=== PATIENT | female | born 1955 | race Two or more races ===

== ENCOUNTER 2016-10-21 08:12 | Day surgery (SDC) | payer OTHER ==
[~2016-10-21] VITALS: Ht 162.6 cm; Wt 76.1 kg
[2016-10-21 09:04] VITALS: Ht 162.6 cm; Wt 76.1 kg
[2016-10-21] MEDS ORDERED: ASPI-664 PO (09:15)
[2016-10-21] MEDS ORDERED: LANT3I SC (09:15)
[2016-10-21] MEDS ORDERED: LOVA10TA63 PO (09:15)
[2016-10-21] MEDS ORDERED: BENA20TA48 PO (09:15)
[2016-10-21] MEDS ORDERED: METF500T4 PO (09:15)
[2016-10-21 09:37] VITALS: BP 140/66; PULSE 85; RESP 9
[2016-10-21] MEDS ORDERED: MIDAZOLAM 1 MG/ML 2 ML INJ ONE ×2 (10:48)
[2016-10-21] MEDS ORDERED: FENTAnyl 50 MCG/ML VIAL ONE (10:49)
[2016-10-21 11:02] VITALS: BP 125/52; PULSE 64; RESP 20
--- NOTE | 2016-10-21 13:51 | GILP ---
DATE OF PROCEDURE: NAME OF PROCEDURE: Colonoscopy. SURGEON: Mercedes Jiang MD PREOPERATIVE DIAGNOSIS: Screening colonoscopy. POSTOPERATIVE DIAGNOSES: 1. Colonoscopy all the way to the cecum. 2. Poor prep making the exam suboptimal. 3. Internal hemorrhoids. INDICATION FOR THE PROCEDURE: Ms. Mulu Mariscal is a 60-year-old female patient who was scheduled for screening colonoscopy. The procedure and possible complications are well explained to the patient, she understood and conse nted to the procedure. DESCRIPTION OF PROCEDURE: Under the influence of fentanyl and Versed, the colonoscope was carefully introduced in the rectum and under direct vision, it was advanced all the way to the cecum. FINDINGS: The patient had poor prep making the exam suboptimal. The patient was noted to have inte rnal hemorrhoids. She tolerated the procedure very well and there was no complication from the procedure. At the end of the procedures, she was awake with stable vital signs and she was discharged home to the care of her family. IMPRESSION: 1. Colonoscopy all the way to the cecum. 2. Poor prep making the exam suboptimal. 3. Internal hemorrhoids. PLAN: Because of the poor prep and suboptimal nature of the examination, the patient will need repe at colonoscopy with better preparation in 1 to 2 years. Dictated By: MERCEDES PINA/ANNA Conf#: [id number] DID#: [id number]
== END 2016-10-21 11:00 | disposition home or self-care (01) ==
LOC: GIL 08:12
PROVIDERS: ATTEND Internal Medicine Gastroenterology
DX: Z12.11 Encounter for screening for malignant neoplasm of colon (principal); K64.8 Other hemorrhoids; I10 Essential (primary) hypertension; E11.9 Type 2 diabetes mellitus without complications
CPT/HCPCS: 43239; 82962; J2250; J3010; Z7610

== ENCOUNTER 2016-12-31 10:26 | Inpatient (IN) | payer OTHER ==
[~2016-12-31] VITALS: Ht 157.5 cm; Wt 77.0 kg
[~2016-12-31 10:26] MED LIST: ASPI-664 PO; BENA20TA48 PO; LANT3I SC; LOVA10TA63 PO; METF500T4 PO
[2016-12-31] MEDS ORDERED: SOD CHLORIDE 0.9% 1,000 ML IV STA (11:25)
[2016-12-31 12:32] LABS: ADD SCAN DIFF NO
[2016-12-31 12:36] LABS: ADD UMIC YES; URINE BILIRUBIN (Dip) NEGATIVE (NEGATIVE); URINE BLOOD (Dip) NEGATIVE (NEGATIVE); URINE COLOR LT. YELLOW (YELLOW); URINE GLUCOSE (Dip) NEGATIVE (NEGATIVE); URINE KETONES (Dip) NEGATIVE (NEGATIVE); URINE LEUKOCYTE ESTERASE (Dip) 1+ (NEGATIVE); URINE NITRITE (Dip) NEGATIVE (NEGATIVE); URINE TOTAL PROTEIN (Dip) NEGATIVE (NEGATIVE); URINE UROBILINOGEN (Dip) 0.2 E.U./dL (0.1-1.0)
[2016-12-31 12:39] LABS: BASOPHILS % 0.3 % (0.0-2.0); EOSINOPHILS # 0.1 10^3/ul (0.0-0.5); HEMATOCRIT 34.3 % (37.0-47.0); HEMOGLOBIN 11.4 g/dl (12.0-16.0); LYMPHOCYTES % 17.5 % (15.0-51.0); MEAN CORPUSCULAR HEMOGLOBIN 29.6 pg (29.0-33.0); MEAN CORPUSCULAR HGB CONC 33.2 g/dl (32.0-37.0); MEAN CORPUSCULAR VOLUME 89.1 fl (82.0-101.0); MEAN PLATELET VOLUME 9.9 fl (7.4-10.4); MONOCYTE # 0.4 10^3/ul (0.3-0.9); MONOCYTES % 3.7 % (0.0-11.0); NEUTROPHIL # 8.8 10^3/ul (1.6-7.5); NEUTROPHILS % 76.8 % (39.0-77.0); PLATELET COUNT 330 10^3/UL (140-415); RED BLOOD COUNT 3.85 10^6/ul (4.20-5.40); RED CELL DISTRIBUTION WIDTH 12.5 % (11.5-14.5); WHITE BLOOD COUNT 11.5 10^3/ul (4.8-10.8)
[2016-12-31 12:44] LABS: URINE RBCS 0-2 /HPF (0)
[2016-12-31 12:58] LABS: ALBUMIN 4.3 g/dl (3.3-4.9)
[2016-12-31 12:59] LABS: POTASSIUM 4.2 mmol/L (3.5-5.1)
--- NOTE | 2016-12-31 12:59 | RADRPT ---
PROCEDURE: XR Foot. CLINICAL INDICATION: Pain. Evaluate for osteomyelitis. TECHNIQUE: Right foot x-rays, three views. COMPARISON: None. FINDINGS: Bone density appears normal to slightly decreased. Bony cortices are intact. There is no evidence of osseous erosion. Degenerative changes of the first metatarsophalangeal joint are present. Mild bunion deformity is observed. A plantar calcaneal spur is present. A defect of the superficial sub cutaneous soft tissues medial to the proximal phalanx of the great toe is present. There is no evid ence of soft tissue air. There is no underlying bony abnormality. IMPRESSION: Presumed soft tissue ulceration of the medial aspect of the great toe. There is no underlying osseo us abnormality or soft tissue air. Mild degenerative changes of the first metatarsophalangeal joint with mild bunion deformity. RPTAT: [facility] .Hiwot Schwarz MD, Date Time Electronically viewed and signed by .Hiwot Schwarz MD, on 12/31/2016 12:59 .T/
[2016-12-31 13:01] LABS: ALBUMIN/GLOBULIN RATIO 1.07; BILIRUBIN,INDIRECT 0.1 mg/dl (0-1.1); BILIRUBIN,TOTAL 0.1 mg/dl (0.2-1.3); CREATININE 0.76 mg/dl (0.44-1.00); TOTAL PROTEIN 8.3 g/dl (6.1-8.1)
[2016-12-31 13:02] LABS: CALCIUM 9.6 mg/dl (8.4-10.2)
[2016-12-31] MEDS ORDERED: CEFTRIAXONE 1 GM/50 ML (PMX) 50 ML IVPB STA (13:02)
[2016-12-31] MEDS ORDERED: SOD CHLORIDE 0.9% 1,000 ML IV SCH (13:26)
[2016-12-31] MEDS ORDERED: ACETAMINOPHEN 325 MG TAB PO PRN ×2 (13:30→17:00)
[2016-12-31] MEDS ORDERED: VANCOMYCIN 1 GM (PMX) 250 ML IVPB ONE (13:30)
[2016-12-31] MEDS ORDERED: ONDANSETRON 4 MG INJ IV PRN ×2 (13:30→17:00)
--- NOTE | 2016-12-31 13:30 | ERA ---
ER Documentation Chief Complaint Date/Time DATE: 12/31/16 TIME: 13:29 Chief Complaint r foot r/o osteo sent by health information coder HPI This is a 61-year-old female with a history of diabetes and hypertension who presents to the emergency room after being sent in by her health information coder, Dr. Cunningham for evaluation of a right big toe ulcer. This patient states that she has had it for approximately 2 weeks and has been on antibiotics with no resolution. The patient denies any fevers, and I spoke to her health information coder who states that she went to the health information coder office and was sent to the emergency room for MRI, admission and to rule out osteomyelitis. ROS All systems reviewed and are negative except as per history of present illness. Medications Home Meds Reported Medications Lovastatin* (Lovastatin*) 10 Mg Tablet, 10 MG PO HS, TAB 10/21/16 Benazepril Hcl* (Benazepril Hcl*) 20 Mg Tablet, 20 MG PO DAILY, #30 TAB 10/21/16 Metformin* (Glucophage*) 500 Mg Tab, 500 MG PO WITH BREAKFAST, #30 TAB 10/21/16 Insulin Glargine* (Lantus*) 100 Unit/Ml Soln, 1 UNIT SC QHS, #1 VIAL 10/21/16 Aspirin* (Aspirin* EC) 81 Mg Tablet.dr, 81 MG PO DAILY, TAB 10/21/16 Allergies Allergies: Coded Allergies: No Known Drug Allergies (Verified Allergy, Unknown, 10/21/16) PMhx/Soc History of Surgery: Yes (L ARM FX REPAIRED WITH METAL PLATE) Anesthesia Reaction: Yes (NAUSEA) Hx Neurological Disorder: No Hx Respiratory Disorders: No Hx Cardiac Disorders: Yes (HTN, HIGH CHOL) Hx Psychiatric Problems: No Hx Miscellaneous Medical Probl: No Hx Alcohol Use: No Hx Substance Use: No Hx Tobacco Use: No Physical Exam Vitals Vital Signs Date Time Temp Pulse Resp B/P Pulse Ox O2 Delivery O2 Flow Rate FiO2 12/31/16 10:53 98.0 100 18 146/75 100 Physical Exam INITIAL VITAL SIGNS: Reviewed by me GENERAL: The patient is well developed and appropriate for usual state of health in no apparent distress HEENT: Pupils equal, round, and reactive to light. EOMI. There is no scleral icterus. NECK: C-spine is soft and supple, there is no meningismus. There is no cervical lymphadenopathy. LUNGS: Clear to auscultation bilaterally. There are no rales, wheezes or rhonchi. HEART: Regular rate and rhythm, no murmurs, clicks, rubs or gallops. ABDOMEN: Soft, non-tender, non-distended. There are bowel sounds in all four quadrants. No rebound or guarding. EXTREMITIES: 2 cm x 1 cm ulcer on the lateral aspect of the right first toe, surrounding area of cellulitis, mild necrosis of the skin, and no purulent discharge there is no peripheral cyanosis or edema. No focal swelling or erythema. NEUROLOGICAL: The patient moves all four extremities with 5/5 strength. Cranial nerves II - XII are intact. Normal gait. Alert and oriented SKIN: There is no apparent rash or petechiae. HEME/LYMPHATIC: There is no evidence of excessive bruising or lymphedema. PSYCHIATRIC: The patient does not appear anxious or depressed. Result Diagram: 12/31/16 1220 12/31/16 1220 Results 24 hrs Laboratory Tests Test 12/31/16 12:20 White Blood Count 11.510^3/ul Red Blood Count 3.8510^6/ul Hemoglobin 11.4g/dl Hematocrit 34.3% Mean Corpuscular Volume 89.1fl Mean Corpuscular Hemoglobin 29.6pg Mean Corpuscular Hemoglobin Concent 33.2g/dl Red Cell Distribution Width 12.5% Platelet Count 93127^3/UL Mean Platelet Volume 9.9fl Neutrophils % 76.8% Lymphocytes % 17.5% Monocytes % 3.7% Eosinophils % 1.0% Basophils % 0.3% Nucleated Red Blood Cells % 0.0/100WBC Neutrophils # 8.810^3/ul Lymphocytes # 2.010^3/ul Monocytes # 0.410^3/ul Eosinophils # 0.110^3/ul Basophils # 0.010^3/ul Nucleated Red Blood Cells # 0.010^3/ul Urine Color LT. YELLOW Urine Clarity CLEAR Urine pH 6.0 Urine Specific [place] <=1.005 Urine Ketones NEGATIVE Urine Nitrite NEGATIVE Urine Bilirubin NEGATIVE Urine Urobilinogen 0.2 E.U./dL Urine Leukocyte Esterase 1+ Urine Microscopic RBC 0-2/HPF Urine Microscopic WBC 2-5/HPF Urine Epithelial Cells FEW Urine Hemoglobin NEGATIVE Urine Glucose NEGATIVE% Urine Total Protein NEGATIVE Sodium Level 140mmol/L Potassium Level Pending Chloride Level 103mmol/L Carbon Dioxide Level Pending Anion Gap Pending Blood Urea Nitrogen Pending Creatinine Pending Glucose Level Pending Calcium Level Pending Total Bilirubin Pending Direct Bilirubin Pending Indirect Bilirubin Pending Aspartate Amino Transf (AST/SGOT) Pending Alanine Aminotransferase (ALT/SGPT) Pending Alkaline Phosphatase Pending Total Protein Pending Albumin 4.3g/dl Globulin Pending Albumin/Globulin Ratio Pending Current Medications Medications (Trade) Dose Ordered Sig/Snehal Route PRN Reason Start Time Stop Time Status Last Admin Dose Admin Sodium Chloride 1,000 ml @ 1,000 mls/hr Q1H STAT IV 12/31/16 11:25 12/31/16 12:24 DC Vancomycin HCl 250 ml @ 125 mls/hr ONCE ONCE IVPB 12/31/16 13:30 12/31/16 15:29 Ceftriaxone Sodium 50 ml @ 100 mls/hr ONCE STAT IVPB 12/31/16 13:02 12/31/16 13:31 12/31/16 13:16 Sodium Chloride (NS) 1,000 ml @ 80 mls/hr [id number] IV 12/31/16 13:26 01/01/17 01:55 Ondansetron HCl (Zofran Inj) 4 mg BRIDGE ORDER PRN IV NAUSEA AND/OR VOMITING 12/31/16 13:30 01/01/17 13:29 Acetaminophen (Tylenol Tab) 650 mg ER BRIDGE PRN PO MILD PAIN/FEVER 12/31/16 13:30 01/01/17 13:29 Procedures/MDM X-ray Foot 3V Interpreted by me: Bones: [No fracture] Joints: [No dislocation] Foreign body: [None] This 61-year-old female presents to the emergency room for evaluation of a foot ulcer. When I evaluated her she did have a 2 cm ulcer on the right greater toe. There was a surrounding area of cellulitis. This patient was afebrile. I did obtain lab work which does not show leukocytosis. X-ray does not show osteomyelitis at this time. The patient was started on vancomycin and Rocephin. I did speak with her health information coder, Dr. Cunningham who states he would like the patient admitted and he will consult on the floor. The patient will be admitted to the MedSurg floor under the care of her panel physician Dr. Barker at this time Departure Diagnosis: Primary Impression: Toe ulcer, right Additional Impressions: Foot pain Normocytic anemia Condition: Stable FELICITAS STANLEY DO December 31, 2016 13:29
[2016-12-31] MEDS ORDERED: VANCOMYCIN IV PER PHARMACY XX SCH (17:00)
[2016-12-31] MEDS ORDERED: NA PHOSPHATE/BIPHOS 133 ML ENEMA PR PRN (17:00)
[2016-12-31] MEDS ORDERED: MAGNESIUM HYDROXIDE 30ML CUP PO PRN (17:00)
[2016-12-31] MEDS ORDERED: morphine 2 MG INJ IV PRN (17:00)
[2016-12-31] MEDS ORDERED: DOCUSATE SODIUM 100 MG CAP PO PRN (17:00)
[2016-12-31] MEDS ORDERED: NITROGLYCERIN (SL) 0.4 MG TAB SL PRN (17:00)
[2016-12-31] MEDS ORDERED: NACL 0.9% 3 ML SYG IV SCH (17:00)
[2016-12-31] MEDS: INSULIN ASPART [NOVOLOG] 3 ML PEN SC SCH ×2 (17:00→21:00)
[2016-12-31] MEDS ORDERED: ALBUTEROL/IPRATROPIUM (NEB) 3 ML AMP HHN PRN (17:00)
[2016-12-31] MEDS ORDERED: hydrALAzine 20 MG INJ IV PRN (17:00)
[2016-12-31] MEDS ORDERED: LORAZEPAM 2 MG INJ IV PRN (17:00)
--- NOTE | 2016-12-31 17:17 | RADRPT ---
PROCEDURE: MRI OF THE RIGHT FOOT CLINICAL INDICATION: Right foot pain and swelling, concern for osteomyelitis TECHNIQUE: Multiple MRI images were obtained utilizing multiple sequences in multiple planes. Image s were interpreted on a high-resolution PACS system. COMPARISON: Radiographs of the right foot dated December 31, 2016 FINDINGS: There is a large medial skin ulceration centered at the first proximal phalanx (axial 18 and coronal 24) with adjacent soft tissue swelling. There is no drainable fluid collection or evidence of oste omyelitis at this time. There are mild background degenerative changes at the first metatarsophalan geal joint. There is degenerative partial thickness tearing of the second plantar plate (sagittal 14) with adjac ent soft tissue swelling/capsulitis. There is 4 mm of soft tissue fullness between the second and th ird metatarsal heads is noted which may reflect some fibrosis versus an interdigital neuroma. There is no dorsal subluxation of the second proximal phalanx. There is no stress or traumatic fracture. There is no tendon tear or tenosynovitis. There is no mus cristina atrophy or edema. IMPRESSION: 1. Medial skin ulceration near the first proximal phalanx with adjacent soft tissue swelling but no evidence of underlying osteomyelitis. 2. Degenerative tearing of the second plantar plate with adjacent soft tissue swelling/capsulitis. Cannot exclude a small interdigital neuroma between the second and third metatarsal heads. 3. No drainable fluid collection. 4. No evidence of acute fracture. 5. No evidence of tendon tear. RPTAT: [facility] .Torito Blount MD, Date Time Electronically viewed and signed by .Torito Blount MD, on 12/31/2016 17:17 .K/
[2016-12-31 17:45] VITALS: BP 135/61; PULSE 85; RESP 16; Ht 157.5 cm; Wt 77.0 kg
[2016-12-31] MEDS: PIPER-TAZO 3.375 GM IV (PMX) 100 ML IVPB SCH (18:11)
[2016-12-31] MEDS: SOD CHLORIDE 0.9% 1,000 ML IV SCH (18:11)
[2016-12-31 19:35] VITALS: BP 141/61; RESP 18
[2016-12-31] MEDS: ATORVASTATIN 10 MG TAB PO SCH (21:21)
[2016-12-31] MEDS: HYDROCODONE/APAP (5/325) TAB PO PRN (21:21)
[2016-12-31] MEDS: INSULIN GLARGINE [LANtus] 3 ML PEN SC SCH (21:26)
[2016-12-31] MEDS: HEPARIN 5,000 UNIT/0.5 ML VIAL SC SCH (21:27)
[2016-12-31] MEDS: COLLAGENASE 30 GM TUBE TOP SCH (21:27)
[2017-01-01] MEDS: PIPER-TAZO 3.375 GM IV (PMX) 100 ML IVPB SCH ×4 (00:14→17:15)
--- NOTE | 2017-01-01 00:21 | HP ---
DATE OF ADMISSION: 12/31/2016 CHIEF COMPLAINT: Right foot ulcer, sent in by outpatient airplane pilot. HISTORY OF PRESENT ILLNESS: A 61-year-old female with past medical history of type 2 diabetes, esse ntial hypertension who was sent in to the ER by her airplane pilot, Dr. Cunningham, for evaluation of a right big toe ulcer. Apparently the patient has been having pain and noticed the ulcer for the las t 2 weeks. Initially she had fevers and chills 2 weeks ago. She went to her primary care doctor. They prescribed 10 days of p.o. antibiotics. The patient does not remember the name of the antibiot ic. They thought the ulcer was getting better because there were signs of possible infection around the ulcer side on the big toe. However, patient has been noticing pus drainage and also that the u lcer has not really gotten better. They were referred to the airplane pilot today, who immediately thou ght the patient should come into the ER for an MRI and x-ray to rule out osteoporosis. No present f stephen or chills, no chest pain, no shortness of breath, no upper or lower GI bleeding. There has be en some drainage of pus from the ulcer area but no nausea, vomiting; no abdominal pain; no diarrhea; no constipation. PAST MEDICAL HISTORY: Stated above. ALLERGIES: NO KNOWN DRUG ALLERGIES. MEDICATIONS AT HOME: Include: 1. Lovastatin 10 mg at bedtime. 2. Benazepril 20 mg daily. 3. Aspirin 81 mg daily. 4. Lantus ____ units subQ b.i.d. 5. Metformin 500 mg with breakfast. PAST SURGICAL HISTORY: She has had a left forearm surgery in the past. SOCIAL HISTORY: Negative for smoking, drinking, IV drug abuse. FAMILY HISTORY: Noncontributory. PHYSICAL EXAMINATION: VITAL SIGNS: T-max 98.0, pulse 100, respirations 18, blood pressure 146/75, saturating 100% on room air. GENERAL: The patient lying in bed, answering questions appropriately. No acute distress. HEENT: Pupils equal, round, react to light. Extraocular muscles intact. NECK: Supple. No thyromegaly. LUNGS: Clear to auscultation bilaterally. CARDIOVASCULAR: S1, S2 heard. No rubs, gallops. ABDOMEN: Soft, nontender, nondistended. Normal bowel sounds. No rebound or guarding. MUSCULOSKELETAL: A 2 x 1 cm ulcer on the lateral aspect of the right big toe. There is some surrou nding area of cellulitis. There is some necrosis of the skin in the middle of the ulcer but no puru lent discharge or bloody discharge noted at this time. No significant swelling or erythema. The re st of the musculoskeletal exam is normal. No lower extremity edema bilaterally. NEUROLOGIC: No focal deficits. LABORATORIES: WBC 11.5, hemoglobin 11.4, hematocrit 34.3, platelets 330. Comprehensive metabolic p shahriar is normal. UA shows 1+ leukocyte esterase positive. IMAGING: There was an x-ray of the right foot performed initially that showed presumed soft-tissue ulceration in the medial aspect of the great toe but no underlying osseous abnormality or soft-tissu e air. There are some mild degenerative changes of the 1st metatarsophalangeal joint with mild buni on deformity. So the MRI of the foot was performed, shows no drainable fluid collection, no evidenc e of acute fracture, no evidence of tendon tear. There is medial skin ulceration near the 1st proxi mal phalanx with adjacent soft-tissue swelling but no evidence of any underlying osteomyelitis. The re is degenerative tearing of the 2nd plantar plate with adjacent soft-tissue swelling and capsuliti s but cannot exclude a small interdigital neuroma between the 2nd and 3rd metatarsal heads. ASSESSMENT AND PLAN: A 61-year-old female coming with a right diabetic foot ulcer. 1. Right diabetic foot ulcer. Admit the patient to medical/surgical floor, get podiatry consult, d iscuss the findings on MRI with the podiatry team, get wound care nurse consult. Check TSH, A1c, li pid panel. Pain control medications, IV fluids, IV antibiotics as well. 2. Essential hypertension. Continue current blood pressure medications. 3. Gastrointestinal prophylaxis. PPI. 4. Deep venous thrombosis prophylaxis. Heparin subcutaneously. Dictated By: PINO CHOUDHURY Conf#: [id number] DID#: [id number]
[2017-01-01] MEDS: INSULIN ASPART [NOVOLOG] 3 ML PEN SC SCH ×6 (01:00→21:13)
[2017-01-01] MEDS: SOD CHLORIDE 0.9% 1,000 ML IV SCH ×3 (02:53→22:53)
[2017-01-01] MEDS: VANCOMYCIN 750 MG in SOD CHLORIDE 0.9% 150 ML IVPB SCH ×2 (04:40→14:19)
[2017-01-01] MEDS: PANTOPRAZOLE (EC) 40 MG TAB PO SCH (06:02)
[2017-01-01 06:42] LABS: CHOL/HDL RATIO 6.6 RATIO
[2017-01-01] MEDS ORDERED: GLUCOSE GEL 15 GRAM TUBE BUCCAL PRN (07:00)
[2017-01-01] MEDS ORDERED: GLUCAGON 1 MG INJ IM PRN (07:00)
[2017-01-01] MEDS ORDERED: GLUCOSE GEL 15 GRAM TUBE PO PRN ×2 (07:00)
[2017-01-01] MEDS ORDERED: DEXTROSE 50% 50 ML SYRINGE IV PRN ×2 (07:00)
[2017-01-01 07:04] LABS: THYROID STIMULATING HORMONE 2.61 MIU/L (0.465-4.680)
[2017-01-01 07:10] LABS: ADD SCAN DIFF NO
[2017-01-01 07:17] LABS: BASOPHILS % 0.3 % (0.0-2.0); EOSINOPHILS # 0.3 10^3/ul (0.0-0.5); EOSINOPHILS % 2.8 % (0.0-7.0); HEMATOCRIT 30.3 % (37.0-47.0); LYMPHOCYTES # 2.8 10^3/ul (0.8-2.9); LYMPHOCYTES % 28.4 % (15.0-51.0); MEAN CORPUSCULAR HEMOGLOBIN 29.7 pg (29.0-33.0); MEAN CORPUSCULAR VOLUME 89.9 fl (82.0-101.0); MEAN PLATELET VOLUME 10.2 fl (7.4-10.4); MONOCYTE # 0.5 10^3/ul (0.3-0.9); MONOCYTES % 5.1 % (0.0-11.0); NEUTROPHIL # 6.1 10^3/ul (1.6-7.5); NEUTROPHILS % 62.9 % (39.0-77.0); PLATELET COUNT 282 10^3/UL (140-415); RED BLOOD COUNT 3.37 10^6/ul (4.20-5.40); RED CELL DISTRIBUTION WIDTH 12.6 % (11.5-14.5); WHITE BLOOD COUNT 9.7 10^3/ul (4.8-10.8)
[2017-01-01 07:33] LABS: CREATININE 0.72 mg/dl (0.44-1.00)
[2017-01-01 07:34] LABS: CALCIUM 8.6 mg/dl (8.4-10.2); MAGNESIUM 1.8 mg/dl (1.7-2.5); PHOSPHORUS 3.6 mg/dl (2.5-4.9)
[2017-01-01 07:35] VITALS: BP 141/66; RESP 16
[2017-01-01] MEDS: ASPIRIN (EC) 81 MG TAB PO SCH (09:24)
[2017-01-01] MEDS: BENAZEPRIL 20 MG TAB PO SCH (09:25)
[2017-01-01] MEDS: INSULIN GLARGINE [LANtus] 3 ML PEN SC SCH ×2 (09:27→21:16)
[2017-01-01] MEDS: COLLAGENASE 30 GM TUBE TOP SCH (09:28)
[2017-01-01] MEDS: HEPARIN 5,000 UNIT/0.5 ML VIAL SC SCH ×2 (09:28→21:12)
--- NOTE | 2017-01-01 10:59 | PN ---
Date/Time of Note Date/Time of Note DATE: 01/01/17 TIME: 10:56 Assessment/Plan VTE Prophylaxis VTE Prophylaxis Intervention: heparin Lines/Catheters IV [facility] Saline Lock Urinary Cath still in place: No Assessment/Plan Chief Complaint/Hosp Course ASSESSMENT AND PLAN: 61-year-old female coming with a right diabetic foot ulcer. 1. Right diabetic foot ulcer - f/u podiatry consult rec's, discuss the findings on MRI with the podiatry team, get wound care nurse consult, as well as vascular and ID consults. - Pain control medications, IV fluids, IV antibiotics as well. 2. Essential hypertension. Continue current blood pressure medications 3. DM-2 - ISS, lantus, f/u A1C 4. Gastrointestinal prophylaxis. PPI. 5. Deep venous thrombosis prophylaxis. Heparin subcutaneously. Problems: Subjective 24 Hr Interval Summary Free Text/Dictation Pt had no acute events overnight. Exam/Review of Systems Vital Signs Vitals Vital Signs Date Time Temp Pulse Resp B/P Pulse Ox O2 Delivery O2 Flow Rate FiO2 01/01/17 07:35 98.3 83 16 141/66 97 12/31/16 17:45 Room Air Intake and Output 12/31/16 12/31/16 01/01/17 15:00 23:00 07:00 Intake Total 50 ml 340 ml 1035 ml Balance 50 ml 340 ml 1035 ml Exam GENERAL: The patient lying in bed, answering questions appropriately. No acute distress. HEENT: Pupils equal, round, react to light. Extraocular muscles intact. NECK: Supple. No thyromegaly. LUNGS: Clear to auscultation bilaterally. CARDIOVASCULAR: S1, S2 heard. No rubs, gallops. ABDOMEN: Soft, nontender, nondistended. Normal bowel sounds. No rebound or guarding. MUSCULOSKELETAL: A 2 x 1 cm ulcer on the lateral aspect of the right big toe. There is some surrounding area of cellulitis. There is some necrosis of the skin in the middle of the ulcer but no purulent discharge or bloody discharge noted at this time. No significant swelling or erythema. The rest of the musculoskeletal exam is normal. No lower extremity edema bilaterally. NEUROLOGIC: No focal deficits. Results Result Diagram: 01/01/17 0505 01/01/17 0500 Results 24 hrs Laboratory Tests Test 12/31/16 12:20 12/31/16 18:12 12/31/16 18:29 12/31/16 18:59 White Blood Count 11.5 H Red Blood Count 3.85 L Hemoglobin 11.4 L Hematocrit 34.3 L Mean Corpuscular Volume 89.1 Mean Corpuscular Hemoglobin 29.6 Mean Corpuscular Hemoglobin Concent 33.2 Red Cell Distribution Width 12.5 Platelet Count 330 Mean Platelet Volume 9.9 Neutrophils % 76.8 Lymphocytes % 17.5 Monocytes % 3.7 Eosinophils % 1.0 Basophils % 0.3 Nucleated Red Blood Cells % 0.0 Neutrophils # 8.8 H Lymphocytes # 2.0 Monocytes # 0.4 Eosinophils # 0.1 Basophils # 0.0 Nucleated Red Blood Cells # 0.0 Urine Color LT. YELLOW Urine Clarity CLEAR Urine pH 6.0 Urine Specific [place] <=1.005 L Urine Ketones NEGATIVE Urine Nitrite NEGATIVE Urine Bilirubin NEGATIVE Urine Urobilinogen 0.2 E.U./dL Urine Leukocyte Esterase 1+ H Urine Microscopic RBC 0-2 Urine Microscopic WBC 2-5 Urine Epithelial Cells FEW Urine Hemoglobin NEGATIVE Urine Glucose NEGATIVE Urine Total Protein NEGATIVE Sodium Level 140 Potassium Level 4.2 Chloride Level 103 Carbon Dioxide Level 23 Anion Gap 18 H Blood Urea Nitrogen 23 H Creatinine 0.76 Glucose Level 117 Lactic Acid Level 1.3 Calcium Level 9.6 Total Bilirubin 0.1 L Direct Bilirubin 0.00 Indirect Bilirubin 0.1 Aspartate Amino Transf (AST/SGOT) 45 Alanine Aminotransferase (ALT/SGPT) 51 Alkaline Phosphatase 103 Total Protein 8.3 H Albumin 4.3 Globulin 4.00 H Albumin/Globulin Ratio 1.07 Free Thyroxine 0.99 Bedside Glucose 58 L 68 L 117 Test 12/31/16 21:24 01/01/17 01:28 01/01/17 04:45 01/01/17 05:00 Bedside Glucose 104 73 78 Sodium Level 140 Potassium Level 4.0 Chloride Level 107 Carbon Dioxide Level 21 Anion Gap 16 Blood Urea Nitrogen 18 Creatinine 0.72 Glucose Level 91 Calcium Level 8.6 Phosphorus Level 3.6 Magnesium Level 1.8 Test 01/01/17 05:05 01/01/17 08:08 White Blood Count 9.7 Red Blood Count 3.37 L Hemoglobin 10.0 L Hematocrit 30.3 L Mean Corpuscular Volume 89.9 Mean Corpuscular Hemoglobin 29.7 Mean Corpuscular Hemoglobin Concent 33.0 Red Cell Distribution Width 12.6 Platelet Count 282 Mean Platelet Volume 10.2 Neutrophils % 62.9 Lymphocytes % 28.4 Monocytes % 5.1 Eosinophils % 2.8 Basophils % 0.3 Nucleated Red Blood Cells % 0.0 Neutrophils # 6.1 Lymphocytes # 2.8 Monocytes # 0.5 Eosinophils # 0.3 Basophils # 0.0 Nucleated Red Blood Cells # 0.0 Hemoglobin A1c 8.9 H Triglycerides Level 191 H Cholesterol Level 172 LDL Cholesterol, Calculated 108 HDL Cholesterol 26 L Cholesterol/HDL Ratio 6.6 Thyroid Stimulating Hormone (TSH) 2.610 Bedside Glucose 97 Medications Medications Current Medications Ondansetron HCl (Zofran Inj) 4 mg Q6H PRN IV NAUSEA AND/OR VOMITING; Start at 17:00 Acetaminophen (Tylenol Tab) 650 mg Q6H PRN PO PAIN LEVEL 1-3 OR FEVER; Start at 17:00 Acetaminophen/ Hydrocodone Bitart ([place] (5/325)) 1 tab Q6H PRN PO MODERATE PAIN LEVEL 4-6 Last administered on 12/31/16 21:21; Admin Dose 1 TAB; Start at 17:00 Morphine Sulfate (morphine) 2 mg Q4H PRN IV SEVERE PAIN LEVEL 7-10; Start 12/31 at 17:00 Docusate Sodium (Colace) 100 mg Q12H PRN PO CONSTIPATION; Start 12/31/16 at 17: 00 Magnesium Hydroxide (Milk Of Mag) 30 ml DAILY PRN PO CONSTIPATION; Start at 17:00 Sodium Biphosphate/ Sodium Phosphate (Fleet Enema) 133 ml DAILY PRN SC CONSTIPATION; Start 12/31/16 at 17:00 Pantoprazole (Protonix Tab) 40 mg DAILY@06 PO Last administered on 01/01/17 06 :02; Admin Dose 40 MG; Start 01/01/17 at 06:00 Heparin Sodium (Porcine) (Heparin (5000 Units/0.5 ml)) 5,000 unit Q12 SC Last administered on 01/01/17 09:28; Admin Dose 5,000 UNIT; Start 12/31/16 at 21:00 Lorazepam 0.5 mg 0.5 mg Q6H PRN IV ANXIETY; Start 12/31/16 at 17:00 Sodium Chloride 1,000 ml @ 100 mls/hr Q10H IV Last administered on 12/31/16 18:11; Admin Dose 100 MLS/HR; Start 12/31/16 at 16:53 Piperacillin Sod/ Tazobactam Sod (Zosyn 3.375gm/ 100 ml (Pmx)) 100 ml @ 200 mls /hr Q6 IVPB Last administered on 01/01/17 06:49; Admin Dose 200 MLS/HR; Start 12/31/16 at 18:00 Vancomycin HCl (Vanco Iv Per Pharmacy) VANCOMYCIN PER PHARMACY NOTE XX ; Start 12/31/16 at 17:00 Hydralazine HCl (Apresoline) 10 mg Q6H PRN IV ELEVATED BLOOD PRESSURE; Start at 17:00 Nitroglycerin (Nitroglycerin (Sl Tab) 0.4 Mg) 1 tab Q5M PRN SL ANGINA; Start at 17:00 Insulin Aspart (Novolog Insulin Pen) NOVOLOG *MILD* ALGORI... Q4 SC ; Start at 17:00 Aspirin (Halfprin) 81 mg DAILY PO Last administered on 01/01/17 09:24; Admin Dose 81 MG; Start 01/01/17 at 09:00 Benazepril HCl (Lotensin) 20 mg DAILY PO Last administered on 01/01/17 09:25; Admin Dose 20 MG; Start 01/01/17 at 09:00 Insulin Glargine (Lantus) 60 unit BID SC Last administered on 01/01/17 09:27; Admin Dose 60 UNIT; Start 12/31/16 at 21:00 Atorvastatin Calcium (Lipitor) 10 mg DAILY@21 PO Last administered on 21:21; Admin Dose 10 MG; Start 12/31/16 at 21:00 Collagenase 1 applic 1 applic DAILY TOP Last administered on 01/01/17 09:28; Admin Dose 1 APPLIC; Start 12/31/16 at 21:00 Vancomycin HCl/ Sodium Chloride (Vancocin/NS) 150 ml @ 75 mls/hr Q12H IVPB Last administered on 01/01/17 04:40; Admin Dose 75 MLS/HR; Start 01/01/17 at 03 :00 Miscellaneous Information 1 ea NOTE XX ; Start 01/01/17 at 07:00 Glucose (Glutose) 15 gm Q15M PRN PO DECREASED GLUCOSE; Start 01/01/17 at 07:00 Glucose (Glutose) 22.5 gm Q15M PRN PO DECREASED GLUCOSE; Start 01/01/17 at 07: 00 Dextrose (D50w Syringe) 25 ml Q15M PRN IV DECREASED GLUCOSE; Start 01/01/17 at 07:00 Dextrose (D50w Syringe) 50 ml Q15M PRN IV DECREASED GLUCOSE; Start 01/01/17 at 07:00 Glucagon (Glucagen) 1 mg Q15M PRN IM DECREASED GLUCOSE; Start 01/01/17 at 07:00 Glucose (Glutose) 15 gm Q15M PRN BUCCAL DECREASED GLUCOSE; Start 01/01/17 at 07 :00 PINO BUCHANAN January 01, 2017 10:59
--- NOTE | 2017-01-01 13:24 | CONS ---
DATE OF ADMISSION: 12/31/2016 DATE OF CONSULTATION: 01/01/2017 TYPE OF CONSULTATION: Infectious Disease. REASON FOR CONSULTATION: Antibiotic management. HISTORY OF PRESENT ILLNESS: Mulu Mariscal is a 61-year-old female who was admitted with a right f oot ulcer. Her past problems include: 1. Adult-onset diabetes mellitus. 2. Essential hypertension. 3. History of left forearm surgery in the past. Acutely, the patient was sent by her trading assistant for evaluation of right big toe ulcer. The patient was having pain and noticed the ulcer about 2 weeks ago. She had fever and chills as well. She was put on 10 days of oral antibiotics. The patient does not remember what the antibiotic was. She palencia s been noting pus coming from the ulcer and she was sent in to the emergency room for an MRI and x-r ays to rule out osteomyelitis. She has no fever or chills at this point. On admission, her white c ount was 11.5, H and H 11.4 and 34.3, platelet count 330,000. Urinalysis showed 1+ leukocyte estera se. X-ray of the right foot showed presumed soft tissue ulceration on the medial aspect of the grea t toe, but no underlying osseous abnormality. The MRI shows medial skin ulceration near the first p roximal phalanx, no underlying osteomyelitis. She has degenerative tearing of the second plantar pl ate. She has no drainable fluid collection. No evidence of acute fracture. No evidence of tendon tear. PAST MEDICAL HISTORY: Operations as outlined. FAMILY HISTORY: Noncontributory. SOCIAL HISTORY: She does not smoke, drink or abuse drugs. ALLERGIES: NONE TO PENICILLIN, SULFA OR FOODS. MEDICATIONS: Per chart. REVIEW OF SYSTEMS: As per HPI. PHYSICAL EXAMINATION: GENERAL: The patient is a well-developed, well-nourished female, alert, responsive, in no acute dis tress. VITAL SIGNS: Stable. She is afebrile. SKIN: Without generalized rash. HEENT: Within normal limits. NECK: Supple. LYMPH NODES: None palpable. CHEST: Decreased breath sounds at the bases. HEART: Without murmur or gallop. ABDOMEN: Soft, nontender, without organosplenomegaly or masses. EXTREMITIES: She has a 2 x 1 cm ulcer on the lateral aspect of the right big toe. There is some tamayo rrounding cellulitis. No purulent discharge. RECTAL AND GENITAL: Deferred. NEUROLOGIC: No focal neurological abnormalities. IMPRESSION AND PLAN: The patient has right diabetic foot ulcer. Podiatry consult and wound care we re requested. The patient was started on vancomycin and Zosyn. I will continue the vancomycin, hol d the Zosyn. I will dictate my findings to the hospitalist. Dictated By: GRACIE SHERMAN MD, JD/ANNA Conf#: [id number] DID#: [id number]
[2017-01-01] MEDS: HYDROCODONE/APAP (5/325) TAB PO PRN (15:38)
[2017-01-01 19:50] VITALS: BP 124/62; RESP 18
[2017-01-01] MEDS: ATORVASTATIN 10 MG TAB PO SCH (21:09)
--- NOTE | 2017-01-02 00:03 | HP ---
DATE OF ADMISSION: 12/31/2016 VASCULAR SURGERY CONSULTATION Dear Doctors: Ms. Mariscal is a 61-year-old female, who presented to [facility] secondary to rig ht first toe gangrene and diabetic ulcer. It seems that the patient had developed significant right lower extremity diabetic foot infection, and had noticed an ulcer that had developed over the past 2 weeks associated with fever and chills at that time. The patient had been given antibiotics and h as been followed by our podiatry colleagues, and it seems that her toe had worsened, which required further evaluation and IV antibiotics; therefore, the patient was admitted to the hospital. At the moment, the patient underwent imaging studies of her right lower extremity, which did not identify a ny underlying osteomyelitis. She currently denies claudication or rest-pain like symptoms. REVIEW OF SYSTEMS: A 14-point review performed and negative except what is mentioned in the HPI. PAST MEDICAL HISTORY: Entails diabetes, hypertension, morbidly obese. PAST SURGICAL HISTORY: Left forearm surgery. ALLERGIES: NO KNOWN DRUG ALLERGIES. SOCIAL HISTORY: Negative for smoking, alcohol, or illicit drug use. FAMILY HISTORY: Positive for diabetes and hypertension. PHYSICAL EXAMINATION: GENERAL: Alert and oriented x3, in no apparent distress. HEENT: Normocephalic, atraumatic. EOMI. Mucosa moist. NECK: Supple. No carotid bruit. PULMONARY: Clear to auscultation bilaterally. No crackles. CARDIOVASCULAR: S1, S2 present. No murmurs. ABDOMEN: Soft, nontender, nondistended. Bowel sounds positive. Truncal obesity. RIGHT LOWER EXTREMITY: Palpable femoral pulse, faint pedal pulse. Motor and sensory intact. Cap r efill 3 seconds. Right great toe with necrotic tissue and ulceration on the lateral aspect, some pu rulent drainage, and surrounding erythema. LEFT LOWER EXTREMITY: Palpable femoral pulse, palpable pedal pulse. Motor and sensory intact. Cap refill 2-3 seconds. No ulcerations. ASSESSMENT AND PLAN: 1. Bilateral lower extremity atherosclerosis with right lower extremity diabetic foot infection and nonhealing ulcer: It seems that the patient has a component of atherosclerosis and her diabetes as the primary cause of her current findings. The patient does have a faint pedal pulse. Mainly, her diabetes and will be the contributing factor to the current status. Would recommend to obtain shari nvasive vascular studies to further delineate her infrainguinal disease. 2. Optimize vascular status (BP meds, diet, nutrition, exercise, sugar control, antiplatelets). 3. Continue with her current antibiotics. 4. Apply Melgisorb silver to help absorb the current drainage and provide adequate local wound care . Discussed findings, plan, and management with the patient and her family member at the bedside, and they understand. Thank you for allowing us to participate in the care of your patient. Please call us with any quest ions. Dictated By: CA CLAIRE/ANNA Conf#: [id number] DID#: [id number]
[2017-01-02] MEDS: PIPER-TAZO 3.375 GM IV (PMX) 100 ML IVPB SCH ×5 (00:19→23:21)
[2017-01-02] MEDS: INSULIN ASPART [NOVOLOG] 3 ML PEN SC SCH ×6 (01:00→21:00)
[2017-01-02] MEDS ORDERED: VANCOMYCIN 1 GM in NS 250 ML IVPB SCH (03:00)
[2017-01-02] MEDS: PANTOPRAZOLE (EC) 40 MG TAB PO SCH (05:39)
[2017-01-02] MEDS: SOD CHLORIDE 0.9% 1,000 ML IV SCH ×3 (05:40→18:53)
[2017-01-02 07:50] LABS: ADD SCAN DIFF NO
[2017-01-02 08:00] VITALS: BP 141/69; RESP 20
[2017-01-02 08:01] LABS: BASOPHILS % 0.4 % (0.0-2.0); EOSINOPHILS # 0.2 10^3/ul (0.0-0.5); EOSINOPHILS % 2.2 % (0.0-7.0); HEMATOCRIT 31.1 % (37.0-47.0); HEMOGLOBIN 10.1 g/dl (12.0-16.0); LYMPHOCYTES # 2.1 10^3/ul (0.8-2.9); LYMPHOCYTES % 25.2 % (15.0-51.0); MEAN CORPUSCULAR HEMOGLOBIN 29.4 pg (29.0-33.0); MEAN CORPUSCULAR HGB CONC 32.5 g/dl (32.0-37.0); MEAN CORPUSCULAR VOLUME 90.7 fl (82.0-101.0); MEAN PLATELET VOLUME 9.9 fl (7.4-10.4); MONOCYTE # 0.4 10^3/ul (0.3-0.9); MONOCYTES % 5.2 % (0.0-11.0); NEUTROPHIL # 5.5 10^3/ul (1.6-7.5); NEUTROPHILS % 66.6 % (39.0-77.0); PLATELET COUNT 304 10^3/UL (140-415); RED BLOOD COUNT 3.43 10^6/ul (4.20-5.40); RED CELL DISTRIBUTION WIDTH 12.5 % (11.5-14.5); WHITE BLOOD COUNT 8.3 10^3/ul (4.8-10.8)
[2017-01-02 08:21] LABS: CALCIUM 9.1 mg/dl (8.4-10.2); CREATININE 0.66 mg/dl (0.44-1.00); POTASSIUM 4.3 mmol/L (3.5-5.1)
[2017-01-02] MEDS: ASPIRIN (EC) 81 MG TAB PO SCH (08:21)
[2017-01-02] MEDS: BENAZEPRIL 20 MG TAB PO SCH (08:23)
[2017-01-02] MEDS: HEPARIN 5,000 UNIT/0.5 ML VIAL SC SCH ×2 (08:26→21:38)
[2017-01-02] MEDS: INSULIN GLARGINE [LANtus] 3 ML PEN SC SCH ×2 (08:27→21:37)
--- NOTE | 2017-01-02 11:22 | PN ---
Date/Time of Note Date/Time of Note DATE: 01/02/17 TIME: 11:20 Assessment/Plan VTE Prophylaxis VTE Prophylaxis Intervention: heparin Lines/Catheters IV [facility]from [facility] Saline Lock Urinary Cath still in place: No Assessment/Plan Chief Complaint/Hosp Course ASSESSMENT AND PLAN: 61-year-old female coming with a right diabetic foot ulcer. 1. Right diabetic foot ulcer - f/u podiatry consult rec's, discuss the findings on MRI with the podiatry team, - f/u wound care nurse consult, as well as vascular and ID consult recs. - f/u LE vascular imaging studies (pending) - Pain control medications, IV fluids, IV antibiotics as well (also tx for UTI). 2. Essential hypertension. Continue current blood pressure medications 3. DM-2 - A1C = 8.9 - continue ISS, lantus 4. Gastrointestinal prophylaxis. PPI. 5. Deep venous thrombosis prophylaxis. Heparin subcutaneously. Problems: Subjective 24 Hr Interval Summary Free Text/Dictation Pt a bit upset b/c wanting to go home. Seen by vascular surgery team. Exam/Review of Systems Vital Signs Vitals Vital Signs Date Time Temp Pulse Resp B/P Pulse Ox O2 Delivery O2 Flow Rate FiO2 01/02/17 08:00 98.2 82 20 141/69 98 12/31/16 17:45 Room Air Intake and Output 01/01/17 01/01/17 01/02/17 15:00 23:00 07:00 Intake Total 615 ml 2009 ml 2330 ml Balance 615 ml 2010 ml 2330 ml Exam GENERAL: The patient lying in bed, answering questions appropriately HEENT: Pupils equal, round, react to light. Extraocular muscles intact. NECK: Supple. No thyromegaly. LUNGS: Clear to auscultation bilaterally. CARDIOVASCULAR: S1, S2 heard. No rubs, gallops. ABDOMEN: Soft, nontender, nondistended. Normal bowel sounds. No rebound or guarding. MUSCULOSKELETAL: A 2 x 1 cm ulcer on the lateral aspect of the right big toe. There is some surrounding area of cellulitis. There is some necrosis of the skin in the middle of the ulcer but no purulent discharge or bloody discharge noted at this time. No significant swelling or erythema. The rest of the musculoskeletal exam is normal. No lower extremity edema bilaterally. NEUROLOGIC: No focal deficits. Results Result Diagram: 01/02/17 0720 01/02/17 0720 Results 24 hrs Laboratory Tests Test 01/01/17 12:31 01/01/17 17:30 01/01/17 21:08 01/02/17 01:01 Bedside Glucose 170 141 216 132 Test 01/02/17 02:00 01/02/17 06:57 01/02/17 07:20 01/02/17 08:14 Vancomycin Level Trough 7.5 L Bedside Glucose 87 71 White Blood Count 8.3 Red Blood Count 3.43 L Hemoglobin 10.1 L Hematocrit 31.1 L Mean Corpuscular Volume 90.7 Mean Corpuscular Hemoglobin 29.4 Mean Corpuscular Hemoglobin Concent 32.5 Red Cell Distribution Width 12.5 Platelet Count 304 Mean Platelet Volume 9.9 Neutrophils % 66.6 Lymphocytes % 25.2 Monocytes % 5.2 Eosinophils % 2.2 Basophils % 0.4 Nucleated Red Blood Cells % 0.0 Neutrophils # 5.5 Lymphocytes # 2.1 Monocytes # 0.4 Eosinophils # 0.2 Basophils # 0.0 Nucleated Red Blood Cells # 0.0 Sodium Level 139 Potassium Level 4.3 Chloride Level 111 H Carbon Dioxide Level 21 Anion Gap 11 Blood Urea Nitrogen 12 Creatinine 0.66 Glucose Level 67 #L Calcium Level 9.1 Medications Medications Current Medications Ondansetron HCl (Zofran Inj) 4 mg Q6H PRN IV NAUSEA AND/OR VOMITING; Start at 17:00 Acetaminophen (Tylenol Tab) 650 mg Q6H PRN PO PAIN LEVEL 1-3 OR FEVER; Start at 17:00 Acetaminophen/ Hydrocodone Bitart ([place] (5/325)) 1 tab Q6H PRN PO MODERATE PAIN LEVEL 4-6 Last administered on 01/01/17t 15:38; Admin Dose 1 TAB; Start at 17:00 Morphine Sulfate (morphine) 2 mg Q4H PRN IV SEVERE PAIN LEVEL 7-10; Start 12/31 at 17:00 Docusate Sodium (Colace) 100 mg Q12H PRN PO CONSTIPATION; Start 12/31/16 at 17: 00 Magnesium Hydroxide (Milk Of Mag) 30 ml DAILY PRN PO CONSTIPATION; Start at 17:00 Sodium Biphosphate/ Sodium Phosphate (Fleet Enema) 133 ml DAILY PRN [place] CONSTIPATION; Start 12/31/16 at 17:00 Pantoprazole (Protonix Tab) 40 mg DAILY@06 PO Last administered on 01/02/17 05 :39; Admin Dose 40 MG; Start 01/01/17 at 06:00 Heparin Sodium (Porcine) (Heparin (5000 Units/0.5 ml)) 5,000 unit Q12 SC Last administered on 01/02/17 08:26; Admin Dose 5,000 UNIT; Start 12/31/16 at 21:00 Lorazepam 0.5 mg 0.5 mg Q6H PRN IV ANXIETY; Start 12/31/16 at 17:00 Sodium Chloride 1,000 ml @ 100 mls/hr Q10H IV Last administered on 01/02/17 05:40; Admin Dose 100 MLS/HR; Start 12/31/16 at 16:53 Piperacillin Sod/ Tazobactam Sod (Zosyn 3.375gm/ 100 ml (Pmx)) 100 ml @ 200 mls /hr Q6 IVPB Last administered on 01/02/17 05:39; Admin Dose 200 MLS/HR; Start 12/31/16 at 18:00 Vancomycin HCl (Vanco Iv Per Pharmacy) VANCOMYCIN PER PHARMACY NOTE XX ; Start 12/31/16 at 17:00 Hydralazine HCl (Apresoline) 10 mg Q6H PRN IV ELEVATED BLOOD PRESSURE; Start at 17:00 Nitroglycerin (Nitroglycerin (Sl Tab) 0.4 Mg) 1 tab Q5M PRN SL ANGINA; Start at 17:00 Insulin Aspart (Novolog Insulin Pen) NOVOLOG *MILD* ALGORI... Q4 SC Last administered on 01/01/17 21:13; Admin Dose 2 UNIT; Start 12/31/16 at 17:00 Aspirin (Halfprin) 81 mg DAILY PO Last administered on 01/02/17 08:21; Admin Dose 81 MG; Start 01/01/17 at 09:00 Benazepril HCl (Lotensin) 20 mg DAILY PO Last administered on 01/02/17 08:23; Admin Dose 20 MG; Start 01/01/17 at 09:00 Insulin Glargine (Lantus) 60 unit BID SC Last administered on 01/02/17 08:27; Admin Dose 60 UNIT; Start 12/31/16 at 21:00 Atorvastatin Calcium (Lipitor) 10 mg DAILY@21 PO Last administered on 21:09; Admin Dose 10 MG; Start 12/31/16 at 21:00 Miscellaneous Information 1 ea NOTE XX ; Start 01/01/17 at 07:00 Glucose (Glutose) 15 gm Q15M PRN PO DECREASED GLUCOSE; Start 01/01/17 at 07:00 Glucose (Glutose) 22.5 gm Q15M PRN PO DECREASED GLUCOSE; Start 01/01/17 at 07: 00 Dextrose (D50w Syringe) 25 ml Q15M PRN IV DECREASED GLUCOSE; Start 01/01/17 at 07:00 Dextrose (D50w Syringe) 50 ml Q15M PRN IV DECREASED GLUCOSE; Start 01/01/17 at 07:00 Glucagon (Glucagen) 1 mg Q15M PRN IM DECREASED GLUCOSE; Start 01/01/17 at 07:00 Glucose 15 gm 15 gm Q15M PRN BUCCAL DECREASED GLUCOSE; Start 01/01/17 at 07:00 Vancomycin HCl/ Sodium Chloride (Vancocin/NS) 250 ml @ 83.333 mls/ hr Q12H IVPB ; Start 01/02/17 at 15:00 PINO BUCHANAN January 02, 2017 11:22
--- NOTE | 2017-01-02 11:24 | RADRPT ---
PROCEDURE: US Lower extremity arterial. CLINICAL INDICATION: Lower extremity gangrene. Peripheral arterial disease. TECHNIQUE: Multiple sonographic images of the bilateral lower extremity arteries was obtained util izing grayscale, color-flow, and doppler imaging. The images were reviewed on a PACS workstation. COMPARISON: None. FINDINGS: Velocities and waveforms were obtained as described below. RIGHT LEG: Common femoral artery: 211.3 cm/s; triphasic waveforms Proximal superficial femoral artery: 214.6 cm/s; triphasic waveforms Mid superficial femoral artery: 188.6 cm/s; triphasic waveforms Distal superficial femoral artery: 101.1 cm/s; triphasic waveforms Popliteal artery: 116 cm/s; triphasic waveforms Posterior tibial artery: 127.1 cm/s; triphasic waveforms Dorsalis pedis artery: 123.4 cm/s; triphasic waveforms LEFT LEG: Common femoral artery: 207.2 cm/s; triphasic waveforms Proximal superficial femoral artery: 149.4 cm/s; triphasic waveforms Mid superficial femoral artery: 172.1 cm/s; triphasic waveforms Distal superficial femoral artery: 106.8 cm/s; triphasic waveforms Popliteal artery: 104.5 cm/s; triphasic waveforms Posterior tibial artery: 97.5 cm/s; triphasic waveforms Dorsalis pedis artery: 124.6 cm/s; triphasic waveforms Right STEPHANIE: 1.1 Left STEPHANIE: 1.1 IMPRESSION: 1. Mildly elevated flow velocities in the right RIGGING SLINGER and SFA and left RIGGING SLINGER and SFA without associated luminal narrowing to suggest hemodynamically significant stenosis. This can be further evaluated wi CT angiography with lower extremity runoff. RPTAT: GG .Shayan Vazquez MD, MD Date Time Electronically viewed and signed by .Shayan Vazquez MD, MD on 01/02/2017 11:24 .P/
--- NOTE | 2017-01-02 13:43 | PN ---
DATE: 01/02/2017 SUBJECTIVE: Patient is alert, looks comfortable, no fevers. Family at bedside. LABORATORY DATA: WBC 8.3, no shift, no bands. BUN 12, creatinine 0.66. MICROBIOLOGY: Blood culture negative. DIAGNOSTICS: MRI of the foot revealed no drainable fluid collection, and no evidence of osteomyelit is. Arterial study revealed hemodynamically significant stenosis in her right lower extremity. PHYSICAL EXAMINATION: GENERAL: An obese, well-developed, elderly woman who is alert, in no distress. HEENT: Head atraumatic, normocephalic. Sclerae anicteric. Buccal mucosa dry. NECK: Supple, trachea midline. CHEST: Rise symmetrical. Breath sounds clear. HEART: S1, S2. ABDOMEN: Soft. Bowel tones present. EXTREMITIES: With right foot dressing intact. ASSESSMENT: 1. Right diabetic foot ulceration with nonhealing wound. 2. Severe peripheral arterial disease. 3. Diabetes. 4. Obesity. PLAN: The patient is being seen by Dr. Unger in vascular consultation. She is on broad spectru m antibiotics. We will make sure and order cultures if there is any drainage. We will swab her senait es for MRSA and further recommendations per patient's clinical course. Dictated By: PRICILA ULLOA BOND TRADER for GRACIE HANSEN/ANNA Conf#: [id number] DID#: [id number]
[2017-01-02] MEDS: VANCOMYCIN 1.25 GM in SOD CHLORIDE 0.9% 250 ML IVPB SCH (14:42)
[2017-01-02 17:10] VITALS: BP 158/72; RESP 20
[2017-01-02 20:10] VITALS: BP 158/67; RESP 16
[2017-01-02] MEDS: ATORVASTATIN 10 MG TAB PO SCH (21:23)
--- NOTE | 2017-01-02 23:59 | PN ---
Date/Time of Note Date/Time of Note DATE: 01/02/17 TIME: 23:59 Assessment/Plan Lines/Catheters IV Catheter Type (from [facility]): Saline Lock Contreras in Place (from Nrs): No Assessment/Plan Chief Complaint/Hosp Course -Bilateral lower extremity atherosclerosis with right lower extremity diabetic foot infection and nonhealing ulcer: It seems that the patient has a component of atherosclerosis. Her diabetes is likely the primary cause of her current findings. The patient does have a faint pedal pulse. Upon her noninvasive vascular studies the infrainguinal disease does not have flow limiting stenosis. Therefore for now will continue to observe the patients wound and progress. -Optimize vascular status (BP meds, diet, nutrition, exercise, sugar control, antiplatelets). -Continue with her current antibiotics. -Apply Melgisorb silver to help absorb the current drainage and provide adequate local wound care. -Discussed findings, plan, and management with the patient and her family member at the bedside, and they understand. -Thank you for allowing us to participate in the care of your patient. Please call us with any questions. Problems: Subjective 24 Hr Interval Summary no new vascular events overnight Exam/Review of Systems Vital Signs Vitals Vital Signs Date Time Temp Pulse Resp B/P Pulse Ox O2 Delivery O2 Flow Rate FiO2 01/02/17 20:10 97.9 68 16 158/67 98 12/31/16 17:45 Room Air Intake and Output 01/02/17 01/02/17 01/03/17 15:00 23:00 07:00 Intake Total 2910 ml Output Total 3 ml Balance 2907 ml Exam Free Text/Dictation GENERAL: Alert and oriented x3, PULMONARY: Clear to auscultation bilaterally CARDIOVASCULAR: S1, S2 present ABDOMEN: Soft, nontender, nondistended. Bowel sounds positive. Truncal obesity. RIGHT LOWER EXTREMITY: Palpable femoral pulse, faint pedal pulse. Motor and sensory intact. Cap refill 3 seconds. Right great toe with necrotic tissue and ulceration on the lateral aspect, purulent drainage, and surrounding erythema. LEFT LOWER EXTREMITY: Palpable femoral pulse, palpable pedal pulse. Motor and sensory intact. Cap refill 2-3 seconds. No ulcerations Results Result Diagram: 01/02/17 0720 01/02/17 0720 CA HOFF MD January 02, 2017 23:59
[2017-01-03] MEDS: SOD CHLORIDE 0.9% 1,000 ML IV SCH (00:46)
[2017-01-03] MEDS: INSULIN ASPART [NOVOLOG] 3 ML PEN SC SCH ×2 (01:00→05:00)
[2017-01-03] MEDS: VANCOMYCIN 1.25 GM in SOD CHLORIDE 0.9% 250 ML IVPB SCH (03:31)
[2017-01-03] MEDS: PANTOPRAZOLE (EC) 40 MG TAB PO SCH (06:13)
[2017-01-03] MEDS: PIPER-TAZO 3.375 GM IV (PMX) 100 ML IVPB SCH ×2 (06:13→12:20)
[2017-01-03] MEDS: HYDROCODONE/APAP (5/325) TAB PO PRN (07:05)
[2017-01-03 07:56] VITALS: BP 151/67; RESP 18
[2017-01-03 08:22] LABS: ADD SCAN DIFF NO
[2017-01-03 08:32] LABS: BASOPHILS % 0.4 % (0.0-2.0); EOSINOPHILS # 0.1 10^3/ul (0.0-0.5); EOSINOPHILS % 1.7 % (0.0-7.0); HEMATOCRIT 31.4 % (37.0-47.0); HEMOGLOBIN 10.2 g/dl (12.0-16.0); LYMPHOCYTES # 2.2 10^3/ul (0.8-2.9); LYMPHOCYTES % 27.9 % (15.0-51.0); MEAN CORPUSCULAR HEMOGLOBIN 29.2 pg (29.0-33.0); MEAN CORPUSCULAR HGB CONC 32.5 g/dl (32.0-37.0); MONOCYTE # 0.4 10^3/ul (0.3-0.9); MONOCYTES % 4.5 % (0.0-11.0); NEUTROPHIL # 5.2 10^3/ul (1.6-7.5); NEUTROPHILS % 65.1 % (39.0-77.0); PLATELET COUNT 320 10^3/UL (140-415); RED BLOOD COUNT 3.49 10^6/ul (4.20-5.40); RED CELL DISTRIBUTION WIDTH 12.7 % (11.5-14.5)
[2017-01-03 08:44] LABS: CREATININE 0.69 mg/dl (0.44-1.00)
[2017-01-03 08:45] LABS: CALCIUM 9.2 mg/dl (8.4-10.2)
[2017-01-03] MEDS: INSULIN GLARGINE [LANtus] 3 ML PEN SC SCH (09:36)
[2017-01-03] MEDS: BENAZEPRIL 20 MG TAB PO SCH (10:24)
[2017-01-03] MEDS: ASPIRIN (EC) 81 MG TAB PO SCH (10:24)
[2017-01-03] MEDS: HEPARIN 5,000 UNIT/0.5 ML VIAL SC SCH (10:29)
--- NOTE | 2017-01-03 11:17 | PDOCDIS ---
Discharge Instructions CONDITION Patient Condition: Stable HOME CARE INSTRUCTIONS: Special Diet: CARB CONTROLLED DIET ACTIVITY: Activity Restrictions: Slowly Increase Activity FOLLOW UP/APPOINTMENTS Appointments See doctor in 1 week in clinic. PINO BUCHANAN January 03, 2017 11:17
[2017-01-03] MEDS ORDERED: LEVO750T8 PO (11:18)
[2017-01-03] MEDS ORDERED: SULF1TAB31 PO (11:49)
--- NOTE | 2017-01-03 11:59 | DS ---
DATE OF ADMISSION: 12/31/2016 DATE OF DISCHARGE: 01/03/2017 HOSPITAL COURSE: A 61-year-old female originally admitted on 01/01/2017 and being discharged home o n 01/03/2017. The patient was sent in by the yacht master because of a right foot ulcer. She was als o found with a urinary tract infection. She was admitted and seen briefly by the podiatry team and also the vascular surgery team. She was placed on broad-spectrum antibiotics as well. Then, she palencia d an MRI of the foot to rule out osteomyelitis, and the MRI was in fact negative for fracture, no te ndon tears, no drainable fluid collection, there were no signs of any osteomyelitis, but there was d egenerative tearing of the second plantar plate with adjacent soft tissue swelling and capsulitis, c annot exclude a small interdigital neuroma between the second and third metatarsal heads. Over the course of her hospital stay, the patient was also seen by vascular surgery team as there were concer ns of peripheral vascular disease. She had an arterial ultrasound of the lower extremities that luis wed mildly elevated flow velocities in the right ULTRASONIC SOLDERER and SFA and left ULTRASONIC SOLDERER and SFA, but no associated luminal narrowing to suggest any hemodynamically significant stenosis. The patient was continued t o be treated for her diabetes type 2 as well, as her hemoglobin A1c was found to be 8.9. After gett ing clearance from the securities consultant team, she will be discharged home today in improved condition. DISCHARGE MEDICATIONS: She will be sent with the following medications: 1. Levaquin 750 mg daily. 2. Aspirin 81 mg daily. 3. Benazepril 20 mg daily. 4. Lantus 16 units subcutaneous b.i.d. 5. Lovastatin 10 mg at bedtime. 6. Metformin 500 mg with breakfast. FOLLOWUP: She will need to follow up with primary care doctor in clinic in the next 1 to 2 weeks. FINAL DIAGNOSES: 1. Right diabetic foot ulcer, negative for osteomyelitis, now on antibiotic treatment. 2. Essential hypertension. 3. Type 2 diabetes, A1c of 8.9. 4. Urinary tract infection. Time spent discharging patient 40 minutes. Dictated By: PINO CHOUDHURY Conf#: [id number] DID#: [id number]
[2017-01-03] MEDS ORDERED: INSULIN ASPART [NOVOLOG] 3 ML PEN SC SCH ×2 (12:00→12:15)
--- NOTE | 2017-01-03 13:41 | CONS ---
Date/Time of Note Date/Time of Note DATE: 01/03/17 TIME: 13:39 Assessment/Plan Assessment/Plan Chief Complaint/Hosp Course SUBJECTIVE: Patient is alert, looks comfortable, no fevers. MICROBIOLOGY: Blood culture negative. DIAGNOSTICS: MRI of the foot revealed no drainable fluid collection, and no evidence of osteomyelitis. Arterial study revealed hemodynamically significant stenosis in her right lower extremity. PHYSICAL EXAMINATION: GENERAL: An obese, well-developed, elderly woman who is alert, in no distress. HEENT: Head atraumatic, normocephalic. Sclerae anicteric. Buccal mucosa dry. NECK: Supple, trachea midline. CHEST: Rise symmetrical. Breath sounds clear. HEART: S1, S2. ABDOMEN: Soft. Bowel tones present. EXTREMITIES: With right foot dressing intact. ASSESSMENT: 1. Right diabetic foot ulceration with nonhealing wound. 2. Severe peripheral arterial disease. 3. Diabetes. 4. Obesity. PLAN: Stable, plan to dc home and f/u with podiatry and vascula teams outpatient, will change abx to PO Bactrim [facility] staff Problems: Consultation Date/Type/Reason Admit Date/Time December 31, 2016 at 13:28 Initial Consult Date Type of Consultation: ID Exam/Review of Systems Vital Signs Vitals Vital Signs Date Time Temp Pulse Resp B/P Pulse Ox O2 Delivery O2 Flow Rate FiO2 01/03/17 07:56 98.1 65 18 151/67 96 12/31/16 17:45 Room Air Intake and Output 01/02/17 01/02/17 01/03/17 15:00 23:00 07:00 Intake Total 2910 ml 1980 ml Output Total 3 ml 900 ml Balance 2907 ml 1080 ml Results Result Diagram: 01/03/17 0727 01/03/17 0727 Results 24 hrs Laboratory Tests Test 01/02/17 17:00 01/02/17 21:22 01/03/17 06:33 01/03/17 07:27 Bedside Glucose 70 102 90 White Blood Count 8.0 Red Blood Count 3.49 L Hemoglobin 10.2 L Hematocrit 31.4 L Mean Corpuscular Volume 90.0 Mean Corpuscular Hemoglobin 29.2 Mean Corpuscular Hemoglobin Concent 32.5 Red Cell Distribution Width 12.7 Platelet Count 320 Mean Platelet Volume 10.0 Neutrophils % 65.1 Lymphocytes % 27.9 Monocytes % 4.5 Eosinophils % 1.7 Basophils % 0.4 Nucleated Red Blood Cells % 0.0 Neutrophils # 5.2 Lymphocytes # 2.2 Monocytes # 0.4 Eosinophils # 0.1 Basophils # 0.0 Nucleated Red Blood Cells # 0.0 Sodium Level 145 H Potassium Level 4.0 Chloride Level 110 Carbon Dioxide Level 22 Anion Gap 17 H Blood Urea Nitrogen 11 Creatinine 0.69 Glucose Level 101 Calcium Level 9.2 Test 01/03/17 09:18 01/03/17 12:02 01/03/17 12:11 Bedside Glucose 132 140 134 Medications Medications Current Medications Ondansetron HCl (Zofran Inj) 4 mg Q6H PRN IV NAUSEA AND/OR VOMITING; Start at 17:00 Acetaminophen (Tylenol Tab) 650 mg Q6H PRN PO PAIN LEVEL 1-3 OR FEVER; Start at 17:00 Acetaminophen/ Hydrocodone Bitart ([place] (5/325)) 1 tab Q6H PRN PO MODERATE PAIN LEVEL 4-6 Last administered on 01/03/17 07:05; Admin Dose 1 TAB; Start at 17:00 Morphine Sulfate (morphine) 2 mg Q4H PRN IV SEVERE PAIN LEVEL 7-10; Start 12/31 at 17:00 Docusate Sodium (Colace) 100 mg Q12H PRN PO CONSTIPATION; Start 12/31/16 at 17: 00 Magnesium Hydroxide (Milk Of Mag) 30 ml DAILY PRN PO CONSTIPATION; Start at 17:00 Sodium Biphosphate/ Sodium Phosphate (Fleet Enema) 133 ml DAILY PRN MS CONSTIPATION; Start 12/31/16 at 17:00 Pantoprazole (Protonix Tab) 40 mg DAILY@06 PO Last administered on 01/03/17 06 :13; Admin Dose 40 MG; Start 01/01/17 at 06:00 Heparin Sodium (Porcine) (Heparin (5000 Units/0.5 ml)) 5,000 unit Q12 SC Last administered on 01/03/17 10:29; Admin Dose 5,000 UNIT; Start 12/31/16 at 21:00 Lorazepam 0.5 mg 0.5 mg Q6H PRN IV ANXIETY; Start 12/31/16 at 17:00 Sodium Chloride 1,000 ml @ 100 mls/hr Q10H IV Last administered on 01/03/17 00:46; Admin Dose 100 MLS/HR; Start 12/31/16 at 16:53 Piperacillin Sod/ Tazobactam Sod (Zosyn 3.375gm/ 100 ml (Pmx)) 100 ml @ 200 mls /hr Q6 IVPB Last administered on 01/03/17 12:20; Admin Dose 200 MLS/HR; Start 12/31/16 at 18:00 Vancomycin HCl (Vanco Iv Per Pharmacy) VANCOMYCIN PER PHARMACY NOTE XX ; Start 12/31/16 at 17:00 Hydralazine HCl (Apresoline) 10 mg Q6H PRN IV ELEVATED BLOOD PRESSURE; Start at 17:00 Nitroglycerin (Nitroglycerin (Sl Tab) 0.4 Mg) 1 tab Q5M PRN SL ANGINA; Start at 17:00 Aspirin (Halfprin) 81 mg DAILY PO Last administered on 01/03/17 10:24; Admin Dose 81 MG; Start 01/01/17 at 09:00 Benazepril HCl (Lotensin) 20 mg DAILY PO Last administered on 01/03/17 10:24; Admin Dose 20 MG; Start 01/01/17 at 09:00 Insulin Glargine (Lantus) 60 unit BID SC Last administered on 01/03/17 09:36; Admin Dose 60 UNIT; Start 12/31/16 at 21:00 Atorvastatin Calcium (Lipitor) 10 mg DAILY@21 PO Last administered on 21:23; Admin Dose 10 MG; Start 12/31/16 at 21:00 Miscellaneous Information 1 ea NOTE XX ; Start 01/01/17 at 07:00 Glucose (Glutose) 15 gm Q15M PRN PO DECREASED GLUCOSE; Start 01/01/17 at 07:00 Glucose (Glutose) 22.5 gm Q15M PRN PO DECREASED GLUCOSE; Start 01/01/17 at 07: 00 Dextrose (D50w Syringe) 25 ml Q15M PRN IV DECREASED GLUCOSE; Start 01/01/17 at 07:00 Dextrose (D50w Syringe) 50 ml Q15M PRN IV DECREASED GLUCOSE; Start 01/01/17 at 07:00 Glucagon (Glucagen) 1 mg Q15M PRN IM DECREASED GLUCOSE; Start 01/01/17 at 07:00 Glucose 15 gm 15 gm Q15M PRN BUCCAL DECREASED GLUCOSE; Start 01/01/17 at 07:00 Vancomycin HCl/ Sodium Chloride (Vancocin/NS) 250 ml @ 83.333 mls/ hr Q12H IVPB Last administered on 01/03/17t 03:31; Admin Dose 83.333 MLS/HR; Start at 15:00 Diagnostic Test (Pha) (Accu-Chek) 1 ea 02 XX ; Start 01/04/17 at 02:00 Miscellaneous Information (*Rx Drug Level Order Reminder*) VANCO TROUGH @ 0, 200 ON... ONCE ONCE XX ; Start 01/04/17 at 02:00; Stop 01/04/17 at 02:01 PRICILA ULLOA NP January 03, 2017 13:41
--- NOTE | 2017-01-03 14:08 | PN ---
Date/Time of Note Date/Time of Note DATE: 01/03/17 TIME: 14:06 Assessment/Plan Lines/Catheters IV Catheter Type (from [facility]): Saline Lock Contreras in Place (from [facility]): No Assessment/Plan Chief Complaint/Hosp Course -Bilateral lower extremity atherosclerosis with right lower extremity diabetic foot infection and nonhealing ulcer: It seems that the patient has a component of atherosclerosis. Her diabetes is likely the primary cause of her current findings. The patient does have a faint pedal pulse. Upon her noninvasive vascular studies the infrainguinal disease does not have flow limiting stenosis. Therefore for now will continue to observe the patients wound and progress. -Patient is cleared from vascular standpoint for surgical debridement or amputation -Optimize vascular status (BP meds, diet, nutrition, exercise, sugar control, antiplatelets). -Continue with her current antibiotics. -Apply Melgisorb silver to help absorb the current drainage and provide adequate local wound care. -Discussed findings, plan, and management with the patient and her family member at the bedside, and they understand. -Thank you for allowing us to participate in the care of your patient. Please call us with any questions. Problems: Subjective 24 Hr Interval Summary no new vascular events overnight Exam/Review of Systems Vital Signs Vitals Vital Signs Date Time Temp Pulse Resp B/P Pulse Ox O2 Delivery O2 Flow Rate FiO2 01/03/17 07:56 98.1 65 18 151/67 96 12/31/16 17:45 Room Air Intake and Output 01/02/17 01/02/17 01/03/17 15:00 23:00 07:00 Intake Total 2910 ml 1980 ml Output Total 3 ml 900 ml Balance 2907 ml 1080 ml Exam Free Text/Dictation GENERAL: Alert and oriented x3, PULMONARY: Clear to auscultation bilaterally CARDIOVASCULAR: S1, S2 present ABDOMEN: Soft, nontender, nondistended. Bowel sounds positive. Truncal obesity. RIGHT LOWER EXTREMITY: Palpable femoral pulse, faint pedal pulse. Motor and sensory intact. Cap refill 3 seconds. Right great toe with necrotic tissue and ulceration on the lateral aspect, purulent drainage, and surrounding erythema improving LEFT LOWER EXTREMITY: Palpable femoral pulse, palpable pedal pulse. Motor and sensory intact. Cap refill 2-3 seconds. No ulcerations Results Result Diagram: 01/03/1772601/03/17726 CA HOFF MD January 03, 2017 14:08
[2017-01-04] MEDS ORDERED: ACCU-CHEK XX SCH (02:00)
== END 2017-01-03 14:10 | disposition home or self-care (01) | DRG 638 ==
LOC: E/R 10:26 → MS2 13:28
PROVIDERS: ADMIT Hospitalist; ATTEND Hospitalist
DX: E11.621 Type 2 diabetes mellitus with foot ulcer (principal); N39.0 Urinary tract infection, site not specified; L97.511 Non-pressure chronic ulcer of other part of right foot limited to breakdown of skin; E11.51 Type 2 diabetes mellitus with diabetic peripheral angiopathy without gangrene; Z79.4 Long term (current) use of insulin; I70.235 Atherosclerosis of native arteries of right leg with ulceration of other part of foot; I10 Essential (primary) hypertension; L03.031 Cellulitis of right toe; E66.9 Obesity, unspecified; Z68.31 Body mass index [BMI] 31.0-31.9, adult; B95.2 Enterococcus as the cause of diseases classified elsewhere
CPT/HCPCS: 36415; 73630; 73718; 80048; 80053; 80061; 80202; 81001; 82962; 83036; 83605; 83735; 84100; 84439; 84443; 85025; 87040; 87070; 87081; 93922; 96365; 96366; 96375; J0696; J1644; J1815; J2543; J3370; J7030; J7050